=== PATIENT | male | born 1985 | race Two or more races ===

== ENCOUNTER 2022-07-30 05:34 | Emergency (ER) | payer MEDICAID ==
[2022-07-30] MEDS: Sodium Chloride 0.9% 10 ML Syringe FLUSH PRN ×2 (05:35→06:03)
[2022-07-30] MEDS ORDERED: Naloxone 0.4 MG/ML SDV IVPUSH PRN (05:35)
[2022-07-30] MEDS ORDERED: Naloxone 0.4 MG/ML SDV IVPUSH STA (05:45)
[2022-07-30] MEDS ORDERED: Ondansetron 4 MG/2 ML SDV IVPUSH ONE (05:56)
[2022-07-30] MEDS ORDERED: Ketorolac 30 MG/ML SDV IVPUSH ONE (05:56)
[2022-07-30 06:19] LABS: ESTIMATED GFR 99 mL/min (>60)
[2022-07-30 06:55] VITALS: BP 105/69; PULSE 70
== END 2022-07-30 06:30 | disposition home or self-care (01) ==
LOC: FB.ED 05:34
DX: F19.10 Other psychoactive substance abuse, uncomplicated (principal)
CPT/HCPCS: 36415; 80053; 80307; 85025; 96374; 96375; 99284; J1885; J2310; J2405; J3490

== ENCOUNTER 2022-08-26 07:26 | Emergency (ER) | payer MEDICAID ==
[~2022-08-26 07:26] MED LIST: Naloxone 0.4 MG/ML SDV IVPUSH PRN
[2022-08-26] MEDS: Sodium Chloride 0.9% 10 ML Syringe FLUSH PRN ×5 (07:26→08:04)
[2022-08-26] MEDS ORDERED: Naloxone 4 MG in Sodium Chloride 0.9% 250 ML IV SCH (07:45)
[2022-08-26] MEDS ORDERED: Naloxone 0.4 MG/ML SDV IVPUSH PRN (07:47)
[2022-08-26 07:58] LABS: ESTIMATED GFR 73 mL/min (>60)
[2022-08-26 08:00] VITALS: BP 148/78; PULSE 150
[2022-08-26] MEDS ORDERED: Sodium Chloride 0.9% 1,000 ML IV ONE (08:44)
[2022-08-26] MEDS ORDERED: Sodium Chloride 0.9% 500 ML IV ONE (12:51)
== END 2022-08-26 17:43 | disposition home or self-care (01) ==
LOC: FB.ED 07:26
DX: T40.411A Poisoning by fentanyl or fentanyl analogs, accidental (unintentional), initial encounter (principal); I24.8 Other forms of acute ischemic heart disease; E66.9 Obesity, unspecified; Z68.37 Body mass index [BMI] 37.0-37.9, adult; Z86.16 Personal history of COVID-19
CPT/HCPCS: 36415; 80053; 83605; 84484; 85025; 87040; 93005; 96365; 96366; 96376; 99284; J2310; J3490; J7030; J7040

== ENCOUNTER 2023-02-13 22:20 | Emergency (ER) | payer MEDICAID ==
[2023-02-13] MEDS ORDERED: Sodium Chloride 0.9% 10 ML Syringe FLUSH PRN ×2 (22:32→22:34)
[2023-02-13] MEDS ORDERED: methylPREDNISolone Sodium Succinate 125 MG/2 ML SDV IVPUSH ONE (22:34)
[2023-02-13] MEDS ORDERED: Ketorolac 30 MG/ML SDV IVPUSH ONE (22:36)
[2023-02-13 23:01] LABS: ESTIMATED GFR 113 mL/min (>60)
[2023-02-13] MEDS ORDERED: Sodium Chloride 0.9% 1,000 ML IV SCH (23:15)
[2023-02-14] MEDS ORDERED: Ciprofloxacin 500 MG Tab PO STA (00:09)
[2023-02-14 00:52] VITALS: BP 158/78; PULSE 82
[2023-02-16 08:15] LABS: CHLAMYDIA TRACHOMATIS, NAA Negative (Negative); NEISSERIA GONORRHOEAE, NAA Positive (Negative)
== END 2023-02-14 00:30 | disposition home or self-care (01) ==
LOC: FB.ED 22:20
DX: N39.0 Urinary tract infection, site not specified (principal); F19.10 Other psychoactive substance abuse, uncomplicated; F17.210 Nicotine dependence, cigarettes, uncomplicated; E66.9 Obesity, unspecified; Z68.30 Body mass index [BMI] 30.0-30.9, adult; Z86.16 Personal history of COVID-19
CPT/HCPCS: 36415; 74176; 80053; 80307; 81001; 82150; 83690; 85025; 87491; 87591; 96374; 96375; 99284; A9270; J1885; J2930; J3490; J7030; 99283

== ENCOUNTER 2023-02-25 17:12 | Emergency (ER) | payer MEDICAID ==
[2023-02-25 17:56] LABS: ESTIMATED GFR 117 mL/min (>60)
[2023-02-25] MEDS ORDERED: Methadone 10 MG Tab PO STA (18:12)
[2023-02-25 18:18] VITALS: BP 125/84; PULSE 70
== END 2023-02-25 18:32 | disposition home or self-care (01) ==
LOC: FB.ED 17:12
DX: F11.23 Opioid dependence with withdrawal (principal); F19.10 Other psychoactive substance abuse, uncomplicated; E66.9 Obesity, unspecified; Z68.29 Body mass index [BMI] 29.0-29.9, adult; Z79.899 Other long term (current) drug therapy; Z88.8 Allergy status to other drugs, medicaments and biological substances; Z86.16 Personal history of COVID-19
CPT/HCPCS: 36415; 80053; 80307; 82150; 83690; 83735; 84100; 85025; 99284; A9270; 99283

== ENCOUNTER 2023-02-28 02:35 | Emergency (ER) | payer MEDICAID ==
[2023-02-28 03:05] LABS: ESTIMATED GFR 117 mL/min (>60)
[2023-02-28 03:15] LABS: ACETAMINOPHEN < 2 ug/mL (<2)
[2023-02-28] MEDS ORDERED: Acetaminophen 500 MG Tab PO ONE (08:06)
[2023-02-28 08:21] VITALS: BP 110/65; PULSE 88
== END 2023-02-28 11:05 ==
LOC: FB.ED 02:35
DX: F19.10 Other psychoactive substance abuse, uncomplicated (principal); E66.9 Obesity, unspecified; Z68.30 Body mass index [BMI] 30.0-30.9, adult; Z88.6 Allergy status to analgesic agent; Z88.8 Allergy status to other drugs, medicaments and biological substances; Z86.16 Personal history of COVID-19; Z72.0 Tobacco use
CPT/HCPCS: 36415; 80053; 80143; 80179; 80307; 81001; 84439; 84443; 85025; 93010; 99284; 99285; A9270-GY

== ENCOUNTER 2023-05-29 20:27 | Emergency (ER) | payer MEDICAID ==
[2023-05-29] MEDS ORDERED: Sodium Chloride 0.9% 10 ML Syringe FLUSH PRN (20:57)
[2023-05-29] MEDS ORDERED: LORazepam 2 MG/ML SDV IVPUSH ONE (20:58)
[2023-05-29] MEDS ORDERED: Ondansetron 4 MG/2 ML SDV IVPUSH ONE (20:58)
[2023-05-29] MEDS ORDERED: Ketorolac 30 MG/ML SDV IVPUSH ONE (20:58)
[2023-05-29] MEDS ORDERED: Sodium Chloride 0.9% 1,000 ML IV SCH (21:00)
[2023-05-29 21:31] LABS: BASOPHILS PERCENT AUTO 0.4 % (0.3-3.8); EOSINOPHILS ABSOLUTE AUTO 0.1 x10-3/uL (0.0-0.6); EOSINOPHILS PERCENT AUTO 1.1 % (0.1-6.8); HEMATOCRIT 43.7 % (38.3-50.1); LYMPHOCYTES ABSOLUTE AUTO 2.1 x10-3/uL (0.5-4.5); LYMPHOCYTES PERCENT AUTO 30.1 % (15.8-45.3); MEAN CORPUSCULAR HEMOGLOBIN 31.2 pg (27.0-33.3); MEAN CORPUSCULAR HGB CONC 34.3 g/dL (28.7-35.3); MEAN CORPUSCULAR VOLUME 90.9 fL (80.8-98.7); MEAN PLATELET VOLUME 7.4 fL (6.7-11.0); MONOCYTES ABSOLUTE AUTO 0.3 x10-3/uL (0.0-1.2); MONOCYTES PERCENT AUTO 3.9 % (5.5-15.2); NEUTROPHILS ABSOLUTE AUTO 4.4 x10-3/uL (1.7-6.9); NEUTROPHILS PERCENT AUTO 64.5 % (40.3-71.8); PLATELET COUNT,PLT 313 x10(3)uL (117-477); RED BLOOD CELL COUNT 4.81 x10(6)uL (3.90-5.90); RED CELL DISTRIBUTION WIDTH 12.5 % (12.4-15.0); WHITE BLOOD CELL COUNT,WBC 6.9 x10-3/uL (3.2-10.1)
[2023-05-29 21:34] LABS: BLOOD UREA NITROGEN,BUN 12 mg/dL (7-18); CALCIUM 8.5 mg/dL (8.6-10.2); CARBON DIOXIDE,CO2 30 mmol/L (21-32); CHLORIDE,CL 104 mmol/L (100-110); CREATININE 0.8 mg/dL (0.70-1.30); ESTIMATED GFR 116 mL/min (>60); GLUCOSE RANDOM 106 mg/dL (80-116); POTASSIUM,K 3.8 mmol/L (3.5-5.3); SODIUM,NA 142 mmol/L (135-145)
[2023-05-29 21:40] LABS: A/G RATIO 1.1; ALANINE AMINOTRANSFERASE,ALT 29 U/L (12-36); ALBUMIN 3.8 g/dL (3.5-5.2); ALKALINE PHOSPHATASE 128 IU/L (56-112); ASPARTATE AMNIOTRANSFERASE,AST 15 IU/L (5-25); BILIRUBIN TOTAL 0.5 mg/dL (0.1-1.3); PROTEIN TOTAL,TP 7.2 g/dL (6.0-8.0)
[2023-05-29] MEDS ORDERED: Sodium Chloride 0.9% 1,000 ML IV STA (22:04)
[2023-05-29 22:30] VITALS: BP 125/82; PULSE 90
[2023-05-29 22:42] LABS: THC SCREEN,URINE NEGATIVE (NEGATIVE)
[2023-05-29 22:43] LABS: AMPHETAMINES SCREEN, URINE POSITIVE (NEGATIVE); BARBITURATE SCREEN,URINE NEGATIVE (NEGATIVE); BENZODIAZEPINES SCREEN,URINE NEGATIVE (NEGATIVE); BUPRENORPHINE SCREEN,URINE NEGATIVE (NEGATIVE); METHADONE SCREEN, URINE NEGATIVE (NEGATIVE); METHAMPHETAMINE SCREEN, URINE POSITIVE (NEGATIVE); OXYCODONE SCREEN,URINE NEGATIVE (NEGATIVE); PROPOXYPHENE SCREEN,URINE NEGATIVE (NEGATIVE)
== END 2023-05-29 22:30 | disposition home or self-care (01) ==
LOC: FB.ED 20:27
DX: F19.10 Other psychoactive substance abuse, uncomplicated (principal); E66.9 Obesity, unspecified; Z68.30 Body mass index [BMI] 30.0-30.9, adult; Z88.5 Allergy status to narcotic agent; Z88.8 Allergy status to other drugs, medicaments and biological substances; Z95.0 Presence of cardiac pacemaker; Z86.16 Personal history of COVID-19
CPT/HCPCS: 36415; 80053; 80307; 84484; 85025; 96361; 96374; 96375; 99283; 99284; J1885; J2060; J2405; J7030